=== PATIENT | male | born 1960 ===

== ENCOUNTER 2019-07-28 16:58 | Inpatient (IN) | payer OTHER ==
[~2019-07-28] VITALS: Ht 175.3 cm; Wt 73.5 kg
[2019-07-28] MEDS ORDERED: CEPH250 PO (17:00)
[2019-07-28] MEDS ORDERED: ALBUTEROL SULFATE 5 MG/ML 20 ML NEB SOLN [BULK] NEB ONE (17:15)
[2019-07-28] MEDS ORDERED: MAGNESIUM SULFATE 2 GM/WATER 50 ML IV ONE (17:15)
[2019-07-28] MEDS ORDERED: MethylPREDNISolone SOD SUCC 125 MG/2 ML VIAL IVP ONE (17:15)
[2019-07-28] MEDS ORDERED: IPRATROPIUM BROMIDE 0.5 MG/2.5 ML NEB SOLUTION NEB ONE (17:15)
[2019-07-28 17:22] LABS: BASOPHILS % (AUTO) 0.2 % (0.0-2.0); EOSINOPHILS % (AUTO) 0 % (1.0-6.0); HEMATOCRIT 44.4 % (41-53); HEMOGLOBIN 13.9 g/dL (13.5-17.5); LYMPHOCYTES # (AUTO) 0.4 K/uL (1.0-4.8); LYMPHOCYTES % (AUTO) 2.3 % (22.0-44.0); MEAN CORPUSCULAR HEMOGLOBIN 28.3 pg (26.0-34.0); MEAN CORPUSCULAR HGB CONC 31.4 G/dL (31.0-37.0); MEAN CORPUSCULAR VOLUME 90 fL (80-100); MONOCYTES # (AUTO) 0.8 K/uL (0.1-1.0); NEUTROPHILS # (AUTO) 15.1 K/uL (1.8-7.7); PLATELET COUNT (AUTO) 441 K/uL (150-450); RED BLOOD CELL COUNT(AUTO) 4.92 MIL/uL (4.50-5.90); RED CELL DISTRIBUTION WIDTH 16.3 % (11.5-14.5)
[2019-07-28 17:25] LABS: NEUTROPHILS % (AUTO) 92.5 % (40.0-70.0)
[2019-07-28] MEDS ORDERED: PRED1 PO (17:40)
[2019-07-28 17:41] LABS: ALANINE AMINOTRANSFERASE 56 U/L (12-78); ALBUMIN 2.8 g/dL (3.4-5.0); ALKALINE PHOSPHATASE 123 U/L (46-116); ANION GAP -2 mmol/L (8-16); ASPARTATE AMINOTRANSFERASE 33 U/L (15-37); BILIRUBIN,TOTAL 0.8 mg/dL (0.1-1.0); CALCIUM, TOTAL 8.7 mg/dL (8.8-10.5); CHLORIDE 100 mmol/L (98-107); CREATINE KINASE, TOTAL ONLY 53 U/L (39-308); CREATININE 1.08 mg/dL (0.60-1.30); GLOMERULAR FILTR. RATE CALC > 60 mL/min (>60); GLUCOSE,RANDOM 112 mg/dL (70-110); POTASSIUM 5.8 mmol/L (3.5-5.1); SODIUM SERUM 140 mmol/L (136-145); TOTAL PROTEIN, SERUM 7.4 g/dL (6.4-8.2); UREA NITROGEN, BLOOD 23 mg/dL (7-18)
[2019-07-28 17:43] LABS: B-TYPE NATRIURETIC PEPTIDE 3780 pg/mL (0-100)
[2019-07-28] MEDS ORDERED: SODIUM CHLORIDE 0.9% 2,050 ML IV ONE (17:45)
[2019-07-28] MEDS ORDERED: PIPERACILLIN/TAZO 3.375 GM/D5W 50 ML IV ONE (17:45)
[2019-07-28 17:50] LABS: CARBON DIOXIDE 42 mmol/L (22-29)
[2019-07-28] MEDS ORDERED: VANCOMYCIN HCL 1.25 GM in DEXTROSE 5%-WATER 250 ML IV ONE (18:00)
[2019-07-28 18:09] LABS: ABG OXYGEN CONTENT 19.3 mL/dL (15.0-23.0); SOURCE, BLOOD GAS ARTERIAL
[2019-07-28 18:12] LABS: ABG A-A DIFF O2 112.9 mmHg (10-20.0); ABG BASE EXCESS 13.2 mmol/L (-2.0-3.0); ABG CARBOXYHEMOGLOBIN 2.2 % (0.0-1.5); ABG HCO3 31.7 mmol/L (22.0-26.0); ABG METHEMOGLOBIN 0.4 % (0.0-1.5); ABG OXYGEN SATURATION 96.2 % (95.0-98.0); ABG OXYHEMOGLOBIN 93.7 % (94.0-100.0); ABG TOTAL HEMOGLOBIN 14.6 G/dL (12.0-18.0); PO2, ARTERIAL BG 97.7 mmHg (79.0-87.0); TEMPERATURE, FAHRENHEIT, BG 98.6 FAHREN (96.0-98.6)
[2019-07-28 18:13] LABS: ABG PCO2 130 mmHg (35-45); ABG PH 7.132 (7.35-7.450); O2 DEVICE,BLOOD GAS BIPAP (ROOM AIR); SITE, BLOOD GAS RT RADIAL; SPONTANEOUS VT, BG 303 ml
[2019-07-28] MEDS ORDERED: ETOMIDATE 2 MG/ML 10 ML VIAL IV ONE (18:19)
[2019-07-28] MEDS ORDERED: ROCURONIUM BROMIDE 10 MG/ML 5 ML VIAL ONE (18:22)
[2019-07-28] MEDS ORDERED: 0.9% SODIUM CHLORIDE 10 ML SYRINGE IVP PRN (18:30)
[2019-07-28] MEDS ORDERED: ONDANSETRON HCL 4 MG/2 ML VIAL IVP PRN ×2 (18:30→18:45)
[2019-07-28] MEDS ORDERED: ACETAMINOPHEN 325 MG TABLET PO PRN ×2 (18:30→18:45)
[2019-07-28] MEDS ORDERED: MORPHINE SULFATE 2 MG/ML SYRINGE IVP PRN (18:45)
[2019-07-28] MEDS ORDERED: BISACODYL 10 MG RECTAL RECTAL SUPPOSITORY PR PRN (18:45)
[2019-07-28] MEDS ORDERED: MAGNESIUM HYDROXIDE SUSPENSION 30 ML UDCUP PO PRN (18:45)
[2019-07-28] MEDS ORDERED: ETOMIDATE 2 MG/ML 10 ML VIAL IVP ONE (18:45)
[2019-07-28] MEDS ORDERED: ROCURONIUM BROMIDE 10 MG/ML 5 ML VIAL IVP ONE (18:45)
[2019-07-28] MEDS ORDERED: ZOLPIDEM TARTRATE 5 MG TABLET PO PRN (18:45)
[2019-07-28] MEDS ORDERED: HYDROCODONE/ACETAMINOPHEN 5-325 MG TABLET PO PRN (18:45)
[2019-07-28 19:03] LABS: INFLUENZA TYPE A NEGATIVE FOR TYPE A (NEGATIVE); INFLUENZA TYPE B NEGATIVE FOR TYPE B (NEGATIVE)
[2019-07-28] MEDS ORDERED: FentaNYL CITRATE PF 500 MCG in DEXTROSE 5%-WATER 90 ML IV PRN (19:25)
[2019-07-28] MEDS ORDERED: PROPOFOL 1000 MG/ISO-OSM 100 ML IV PRN (19:42)
[2019-07-28 20:09] LABS: APPEARANCE,URINE CLOUDY (CLEAR); BILIRUBIN,URINE NEGATIVE (NEGATIVE); GLUCOSE, URINE (UA) NEGATIVE (NEGATIVE); KETONES,URINE NEGATIVE (NEGATIVE); LEUKOCYTE ESTERASE ,URINE SMALL (NEGATIVE); OCCULT BLOOD,URINE LARGE (NEGATIVE); PROTEIN,URINE SEE CONFIRM (NEGATIVE)
[2019-07-28] MEDS ORDERED: MIDAZOLAM HCL 100 MG in DEXTROSE 5%-WATER 180 ML IV PRN (20:15)
[2019-07-28 20:24] LABS: BACTERIA,URINE Moderate /HPF (None Seen); NITRATE,URINE POSITIVE (NEGATIVE); SQUAMOUS EPITHELIAL CELL,UR Few /LPF (None Seen); SULFOSALICYLIC ACID,URINE 3+ (Negative); WBC,URINE 26-50 /HPF (0-5)
[2019-07-28] MEDS ORDERED: MIDAZOLAM HCL 5 MG/ML VIAL ONE (20:24)
[2019-07-28] MEDS ORDERED: MIDAZOLAM HCL 2 MG/2 ML VIAL IVP ONE (20:30)
[2019-07-28 20:42] LABS: ABG A-A DIFF O2 424.3 mmHg (10-20.0); ABG BASE EXCESS 5.5 mmol/L (-2.0-3.0); ABG CARBOXYHEMOGLOBIN 1.9 % (0.0-1.5); ABG HCO3 27.6 mmol/L (22.0-26.0); ABG METHEMOGLOBIN 0.2 % (0.0-1.5); ABG OXYGEN CONTENT 18.6 mL/dL (15.0-23.0); ABG OXYGEN SATURATION 99.5 % (95.0-98.0); ABG OXYHEMOGLOBIN 97.4 % (94.0-100.0); ABG PH 7.289 (7.35-7.450); ABG TOTAL HEMOGLOBIN 13.2 G/dL (12.0-18.0); PO2, ARTERIAL BG 222.3 mmHg (79.0-87.0); SOURCE, BLOOD GAS ARTERIAL; TEMPERATURE, FAHRENHEIT, BG 97.4 FAHREN (96.0-98.6)
[2019-07-28 20:43] LABS: ABG PCO2 68 mmHg (35-45); O2 DEVICE,BLOOD GAS VENTILATOR (ROOM AIR); PEEP,BG 5 cm H2O; SITE, BLOOD GAS RT RADIAL; VT, ABG 500 ml
[2019-07-28] MEDS: CefTRIAXone 1 GM/DEXTROSE 50 ML IV SCH (20:47)
[2019-07-28] MEDS: BENZONATATE 100 MG CAPSULE PO SCH (21:00)
[2019-07-28] MEDS: DOCUSATE SODIUM 100 MG CAPSULE PO SCH (21:00)
[2019-07-28] MEDS: AZITHROMYCIN 500 MG/NS 250 ML IV SCH (21:00)
[2019-07-28] MEDS: GuaiFENesin SR 600 MG ER TABLET PO SCH (21:00)
[2019-07-28] MEDS: IPRATROPIUM BROMIDE 0.5 MG/2.5 ML NEB SOLUTION NEB SCH (21:58)
[2019-07-28] MEDS: ALBUTEROL SULFATE 2.5 MG/0.5 ML NEB SOLUTION NEB SCH (21:58)
[2019-07-29] MEDS: HEPARIN SODIUM,PORCINE 5,000 UNITS/ML VIAL SQ SCH ×4 (01:17→23:20)
[2019-07-29] MEDS: MethylPREDNISolone SOD SUCC 125 MG/2 ML VIAL IVP SCH ×5 (01:33→23:20)
[2019-07-29] MEDS: ALBUTEROL SULFATE 2.5 MG/0.5 ML NEB SOLUTION NEB SCH ×4 (01:39→19:38)
[2019-07-29] MEDS: IPRATROPIUM BROMIDE 0.5 MG/2.5 ML NEB SOLUTION NEB SCH ×4 (01:39→19:38)
[2019-07-29 07:33] LABS: EOSINOPHILS % (AUTO) 0.3 % (1.0-6.0); HEMATOCRIT 39.7 % (41-53); HEMOGLOBIN 12.5 g/dL (13.5-17.5); LYMPHOCYTES # (AUTO) 0.2 K/uL (1.0-4.8); LYMPHOCYTES % (AUTO) 2.7 % (22.0-44.0); MEAN CORPUSCULAR HEMOGLOBIN 27.9 pg (26.0-34.0); MEAN CORPUSCULAR HGB CONC 31.5 G/dL (31.0-37.0); MEAN CORPUSCULAR VOLUME 88 fL (80-100); MONOCYTES # (AUTO) 0.2 K/uL (0.1-1.0); MONOCYTES % (AUTO) 2.8 % (2.0-9.0); NEUTROPHILS # (AUTO) 7.8 K/uL (1.8-7.7); PLATELET COUNT (AUTO) 320 K/uL (150-450); RED BLOOD CELL COUNT(AUTO) 4.49 MIL/uL (4.50-5.90); RED CELL DISTRIBUTION WIDTH 15.9 % (11.5-14.5)
[2019-07-29 07:34] LABS: NEUTROPHILS % (AUTO) 94.2 % (40.0-70.0)
[2019-07-29 07:48] LABS: ALANINE AMINOTRANSFERASE 53 U/L (12-78); ALBUMIN 2.2 g/dL (3.4-5.0); ALKALINE PHOSPHATASE 94 U/L (46-116); ANION GAP -1 mmol/L (8-16); ASPARTATE AMINOTRANSFERASE 35 U/L (15-37); BILIRUBIN,TOTAL 0.6 mg/dL (0.1-1.0); CALCIUM, TOTAL 7.7 mg/dL (8.8-10.5); CARBON DIOXIDE 40 mmol/L (22-29); CHLORIDE 101 mmol/L (98-107); CREATININE 1.03 mg/dL (0.60-1.30); GLOMERULAR FILTR. RATE CALC > 60 mL/min (>60); GLUCOSE,RANDOM 121 mg/dL (70-110); POTASSIUM 4.6 mmol/L (3.5-5.1); SODIUM SERUM 140 mmol/L (136-145); UREA NITROGEN, BLOOD 24 mg/dL (7-18)
[2019-07-29 08:15] VITALS: BP 111/63
[2019-07-29] MEDS: PANTOPRAZOLE SODIUM 40 MG DR TABLET PO SCH (08:51)
[2019-07-29] MEDS: BENZONATATE 100 MG CAPSULE PO SCH ×3 (08:51→21:09)
[2019-07-29] MEDS: DOCUSATE SODIUM 100 MG CAPSULE PO SCH ×2 (08:51→21:09)
[2019-07-29] MEDS: GuaiFENesin SR 600 MG ER TABLET PO SCH ×2 (08:51→21:09)
[2019-07-29 09:32] LABS: ABG A-A DIFF O2 278.1 mmHg (10-20.0); ABG BASE EXCESS 14.2 mmol/L (-2.0-3.0); ABG CARBOXYHEMOGLOBIN 1.4 % (0.0-1.5); ABG HCO3 35.4 mmol/L (22.0-26.0); ABG METHEMOGLOBIN 0.3 % (0.0-1.5); ABG OXYGEN CONTENT 17.4 mL/dL (15.0-23.0); ABG OXYGEN SATURATION 96.4 % (95.0-98.0); ABG OXYHEMOGLOBIN 94.8 % (94.0-100.0); ABG PCO2 64 mmHg (35-45); ABG PH 7.405 (7.35-7.450); PO2, ARTERIAL BG 79.9 mmHg (79.0-87.0); SOURCE, BLOOD GAS ARTERIAL; TEMPERATURE, FAHRENHEIT, BG 98.6 FAHREN (96.0-98.6)
[2019-07-29 09:33] LABS: O2 DEVICE,BLOOD GAS VENTILATOR (ROOM AIR); PEEP,BG 5 cm H2O; SITE, BLOOD GAS LFT RADIAL; VT, ABG 500 ml
[2019-07-29 12:00] VITALS: BP 103/55
[2019-07-29] MEDS: FentaNYL CITRATE PF 500 MCG in DEXTROSE 5%-WATER 90 ML IV PRN ×3 (12:49→23:01)
[2019-07-29] MEDS ORDERED: FUROSEMIDE 20 MG/2 ML VIAL IVP ONE (13:30)
[2019-07-29] MEDS ORDERED: MIDAZOLAM HCL 100 MG in DEXTROSE 5%-WATER 180 ML IV PRN (14:01)
[2019-07-29 14:38] LABS: AMPHET/METH SCREEN,URINE NEGATIVE (NEGATIVE); BARBITURATE SCREEN, URINE NEGATIVE (NEGATIVE); BENZODIAZEPINES SCREEN,URINE POSITIVE (NEGATIVE); CANNABINOID SCREEN,URINE POSITIVE (NEGATIVE); COCAINE SCREEN,URINE NEGATIVE (NEGATIVE); METHADONE SCREEN, URINE NEGATIVE (NEGATIVE); OPIATE SCREEN,URINE NEGATIVE (NEGATIVE); PHENCYCLIDINE SCREEN,URINE NEGATIVE (NEGATIVE)
[2019-07-29] MEDS ORDERED: VANCOMYCIN HCL 1 GM/D5% WATER 200 ML IV ONE (15:00)
[2019-07-29] MEDS ORDERED: SODIUM CHLORIDE 0.9% 250 ML IV ONE ×2 (15:23→23:40)
[2019-07-29] MEDS: MIDAZOLAM HCL 100 MG in DEXTROSE 5%-WATER 180 ML IV PRN ×2 (15:32→22:07)
[2019-07-29 16:00] VITALS: BP 89/58
[2019-07-29] MEDS: ALBUMIN HUMAN 25%-25GM/100ML 100 ML IV SCH (16:31)
[2019-07-29 20:00] VITALS: BP 96/57
[2019-07-29] MEDS ORDERED: FUROSEMIDE 20 MG/2 ML VIAL IVP SCH (21:00)
[2019-07-29] MEDS: CefTRIAXone 1 GM/DEXTROSE 50 ML IV SCH (21:30)
[2019-07-29] MEDS: AZITHROMYCIN 500 MG/NS 250 ML IV SCH (22:15)
[2019-07-30] VITALS: BP 96/58
[2019-07-30] MEDS: ALBUMIN HUMAN 25%-25GM/100ML 100 ML IV SCH ×3 (00:54→16:04)
[2019-07-30] MEDS: IPRATROPIUM BROMIDE 0.5 MG/2.5 ML NEB SOLUTION NEB SCH ×4 (01:40→20:04)
[2019-07-30] MEDS: ALBUTEROL SULFATE 2.5 MG/0.5 ML NEB SOLUTION NEB SCH ×4 (01:40→20:04)
[2019-07-30 04:00] VITALS: BP 115/74
[2019-07-30 05:49] LABS: CALCIUM, TOTAL 8.5 mg/dL (8.8-10.5); CHLORIDE 99 mmol/L (98-107); CREATININE 0.88 mg/dL (0.60-1.30); GLOMERULAR FILTR. RATE CALC > 60 mL/min (>60); GLUCOSE,RANDOM 122 mg/dL (70-110); POTASSIUM 4.7 mmol/L (3.5-5.1); SODIUM SERUM 140 mmol/L (136-145); UREA NITROGEN, BLOOD 28 mg/dL (7-18)
[2019-07-30 05:51] LABS: ANION GAP -2 mmol/L (8-16)
[2019-07-30 05:53] LABS: CARBON DIOXIDE 43 mmol/L (22-29)
[2019-07-30] MEDS: MethylPREDNISolone SOD SUCC 125 MG/2 ML VIAL IVP SCH ×3 (05:53→17:59)
[2019-07-30] MEDS: VANCOMYCIN HCL 1 GM/D5% WATER 200 ML IV SCH ×2 (06:30→17:59)
[2019-07-30 08:00] VITALS: BP 128/70
[2019-07-30] MEDS: DOCUSATE SODIUM 100 MG CAPSULE PO SCH ×2 (08:30→20:52)
[2019-07-30] MEDS: GuaiFENesin SR 600 MG ER TABLET PO SCH ×2 (08:31→20:53)
[2019-07-30] MEDS: PANTOPRAZOLE SODIUM 40 MG DR TABLET PO SCH (08:31)
[2019-07-30] MEDS: BENZONATATE 100 MG CAPSULE PO SCH ×3 (08:31→20:52)
[2019-07-30] MEDS: HEPARIN SODIUM,PORCINE 5,000 UNITS/ML VIAL SQ SCH ×2 (08:37→16:04)
[2019-07-30] MEDS: RINGERS SOLUTION,LACTATED 1,000 ML IV SCH (09:48)
[2019-07-30] MEDS: FentaNYL CITRATE PF 500 MCG in DEXTROSE 5%-WATER 90 ML IV PRN ×2 (10:05→20:18)
[2019-07-30] MEDS: ALBUTEROL SULFATE 2.5 MG/0.5 ML NEB SOLUTION NEB PRN (11:04)
[2019-07-30] MEDS: IPRATROPIUM BROMIDE 0.5 MG/2.5 ML NEB SOLUTION NEB PRN (11:05)
[2019-07-30 12:00] VITALS: BP 109/65
[2019-07-30 16:00] VITALS: BP 117/66
[2019-07-30 20:00] VITALS: BP 126/73
[2019-07-30] MEDS: CefTRIAXone 1 GM/DEXTROSE 50 ML IV SCH (20:17)
[2019-07-30] MEDS: AZITHROMYCIN 500 MG/NS 250 ML IV SCH (20:53)
[2019-07-31] VITALS: BP_SYST 111; BP_SYST 123; BP_DIAS 68
[2019-07-31] MEDS: RINGERS SOLUTION,LACTATED 1,000 ML IV SCH (00:24)
[2019-07-31] MEDS: MethylPREDNISolone SOD SUCC 125 MG/2 ML VIAL IVP SCH ×4 (00:24→17:45)
[2019-07-31] MEDS: HEPARIN SODIUM,PORCINE 5,000 UNITS/ML VIAL SQ SCH ×3 (00:24→16:04)
[2019-07-31] MEDS: ALBUMIN HUMAN 25%-25GM/100ML 100 ML IV SCH ×3 (00:25→16:04)
[2019-07-31] MEDS: ALBUTEROL SULFATE 2.5 MG/0.5 ML NEB SOLUTION NEB SCH ×4 (02:09→19:59)
[2019-07-31] MEDS: IPRATROPIUM BROMIDE 0.5 MG/2.5 ML NEB SOLUTION NEB SCH ×4 (02:09→19:59)
[2019-07-31 04:00] VITALS: BP 127/88
[2019-07-31] MEDS: FentaNYL CITRATE PF 500 MCG in DEXTROSE 5%-WATER 90 ML IV PRN ×2 (04:57→17:46)
[2019-07-31 05:21] LABS: BASOPHILS % (AUTO) 0.4 % (0.0-2.0); EOSINOPHILS % (AUTO) 0 % (1.0-6.0); HEMATOCRIT 32.2 % (41-53); HEMOGLOBIN 10.6 g/dL (13.5-17.5); LYMPHOCYTES # (AUTO) 0.1 K/uL (1.0-4.8); LYMPHOCYTES % (AUTO) 1.2 % (22.0-44.0); MEAN CORPUSCULAR HEMOGLOBIN 28.4 pg (26.0-34.0); MEAN CORPUSCULAR VOLUME 86 fL (80-100); MONOCYTES # (AUTO) 0.3 K/uL (0.1-1.0); MONOCYTES % (AUTO) 3.3 % (2.0-9.0); NEUTROPHILS # (AUTO) 9.2 K/uL (1.8-7.7); PLATELET COUNT (AUTO) 298 K/uL (150-450); RED BLOOD CELL COUNT(AUTO) 3.74 MIL/uL (4.50-5.90); RED CELL DISTRIBUTION WIDTH 15.9 % (11.5-14.5)
[2019-07-31 05:23] LABS: NEUTROPHILS % (AUTO) 95.1 % (40.0-70.0)
[2019-07-31 05:35] LABS: ALANINE AMINOTRANSFERASE 35 U/L (12-78); ALBUMIN 3.7 g/dL (3.4-5.0); ALKALINE PHOSPHATASE 61 U/L (46-116); ANION GAP -2 mmol/L (8-16); ASPARTATE AMINOTRANSFERASE 14 U/L (15-37); BILIRUBIN,TOTAL 0.5 mg/dL (0.1-1.0); CALCIUM, TOTAL 8.7 mg/dL (8.8-10.5); CHLORIDE 100 mmol/L (98-107); CREATININE 0.81 mg/dL (0.60-1.30); GLOMERULAR FILTR. RATE CALC > 60 mL/min (>60); GLUCOSE,RANDOM 124 mg/dL (70-110); POTASSIUM 4.7 mmol/L (3.5-5.1); SODIUM SERUM 140 mmol/L (136-145); TOTAL PROTEIN, SERUM 6.7 g/dL (6.4-8.2); UREA NITROGEN, BLOOD 29 mg/dL (7-18)
[2019-07-31 05:37] LABS: CARBON DIOXIDE 42 mmol/L (22-29)
[2019-07-31] MEDS: VANCOMYCIN HCL 1 GM/D5% WATER 200 ML IV SCH ×2 (06:40→17:46)
[2019-07-31 08:00] VITALS: BP_SYST 135; BP_DIAS 87; BP_DIAS 89
[2019-07-31] MEDS: PANTOPRAZOLE SODIUM 40 MG/VIAL IVP SCH (08:42)
[2019-07-31] MEDS: BENZONATATE 100 MG CAPSULE PO SCH ×3 (08:43→20:21)
[2019-07-31] MEDS: DOCUSATE SODIUM 100 MG CAPSULE PO SCH ×2 (08:43→20:21)
[2019-07-31] MEDS: GuaiFENesin SR 600 MG ER TABLET PO SCH ×2 (08:43→20:21)
[2019-07-31 12:00] VITALS: BP_SYST 124; BP_DIAS 71; BP_DIAS 81
[2019-07-31 16:00] VITALS: BP 128/76
[2019-07-31 20:00] VITALS: BP 134/87
[2019-08-01] VITALS (8 sets, daily range): BP systolic 130–144; BP diastolic 60–88
[2019-08-01] MEDS: MethylPREDNISolone SOD SUCC 125 MG/2 ML VIAL IVP SCH ×5 (00:41→23:11)
[2019-08-01] MEDS: ALBUMIN HUMAN 25%-25GM/100ML 100 ML IV SCH ×3 (00:42→16:58)
[2019-08-01] MEDS: HEPARIN SODIUM,PORCINE 5,000 UNITS/ML VIAL SQ SCH ×4 (00:42→23:10)
[2019-08-01] MEDS ORDERED: SODIUM CHLORIDE 0.9% 250 ML IV ONE (01:21)
[2019-08-01] MEDS: IPRATROPIUM BROMIDE 0.5 MG/2.5 ML NEB SOLUTION NEB SCH ×4 (01:46→20:01)
[2019-08-01] MEDS: ALBUTEROL SULFATE 2.5 MG/0.5 ML NEB SOLUTION NEB SCH ×4 (01:46→20:01)
[2019-08-01] MEDS: FentaNYL CITRATE PF 500 MCG in DEXTROSE 5%-WATER 90 ML IV PRN ×2 (04:29→15:39)
[2019-08-01 05:13] LABS: BASOPHILS % (AUTO) 0.1 % (0.0-2.0); EOSINOPHILS % (AUTO) 0 % (1.0-6.0); HEMATOCRIT 33.8 % (41-53); LYMPHOCYTES # (AUTO) 0.1 K/uL (1.0-4.8); MEAN CORPUSCULAR HEMOGLOBIN 28.4 pg (26.0-34.0); MEAN CORPUSCULAR HGB CONC 32.4 G/dL (31.0-37.0); MEAN CORPUSCULAR VOLUME 88 fL (80-100); MONOCYTES # (AUTO) 0.4 K/uL (0.1-1.0); MONOCYTES % (AUTO) 5.2 % (2.0-9.0); NEUTROPHILS # (AUTO) 7.2 K/uL (1.8-7.7); PLATELET COUNT (AUTO) 271 K/uL (150-450); RED BLOOD CELL COUNT(AUTO) 3.86 MIL/uL (4.50-5.90); RED CELL DISTRIBUTION WIDTH 16.2 % (11.5-14.5)
[2019-08-01 05:16] LABS: NEUTROPHILS % (AUTO) 93.7 % (40.0-70.0)
[2019-08-01 05:25] LABS: ALANINE AMINOTRANSFERASE 50 U/L (12-78); ALBUMIN 4.4 g/dL (3.4-5.0); ALKALINE PHOSPHATASE 54 U/L (46-116); ASPARTATE AMINOTRANSFERASE 34 U/L (15-37); BILIRUBIN,TOTAL 0.8 mg/dL (0.1-1.0); CALCIUM, TOTAL 9.2 mg/dL (8.8-10.5); CHLORIDE 103 mmol/L (98-107); CREATININE 0.72 mg/dL (0.60-1.30); GLOMERULAR FILTR. RATE CALC > 60 mL/min (>60); GLUCOSE,RANDOM 138 mg/dL (70-110); POTASSIUM 5.6 mmol/L (3.5-5.1); SODIUM SERUM 145 mmol/L (136-145); TOTAL PROTEIN, SERUM 7.1 g/dL (6.4-8.2); UREA NITROGEN, BLOOD 32 mg/dL (7-18)
[2019-08-01 05:26] LABS: ANION GAP -2 mmol/L (8-16); CARBON DIOXIDE 44 mmol/L (22-29)
[2019-08-01 05:38] LABS: VANCOMYCIN,RANDOM 11.4 mcg/mL (25.0-50.0)
[2019-08-01] MEDS ORDERED: SODIUM CHLORIDE 0.9% 100 ML ONE (05:50)
[2019-08-01] MEDS: VANCOMYCIN HCL 1 GM/D5% WATER 200 ML IV SCH ×3 (06:08→23:10)
[2019-08-01] MEDS: PANTOPRAZOLE SODIUM 40 MG/VIAL IVP SCH (08:20)
[2019-08-01] MEDS: DOCUSATE SODIUM 100 MG CAPSULE PO SCH ×2 (08:21→20:43)
[2019-08-01] MEDS: GuaiFENesin SR 600 MG ER TABLET PO SCH ×2 (08:21→20:43)
[2019-08-01] MEDS: BENZONATATE 100 MG CAPSULE PO SCH ×3 (08:21→20:43)
[2019-08-01] MEDS: MIDAZOLAM HCL 100 MG in DEXTROSE 5%-WATER 180 ML IV PRN (08:22)
[2019-08-01] MEDS: ALBUTEROL SULFATE 2.5 MG/0.5 ML NEB SOLUTION NEB PRN (09:41)
[2019-08-01] MEDS: IPRATROPIUM BROMIDE 0.5 MG/2.5 ML NEB SOLUTION NEB PRN (09:41)
[2019-08-01 16:38] LABS: LEGIONELLA PNEUMO AG URINE Negative (Negative)
[2019-08-02 13:08] LABS: ORGANISM ID Not indicated.; S PNEUMO SOURCE Urine; STREP PNEUMONIAE AG URINE Negative (Negative); STREP.PNEUMO BODY FLUID CULT. Not Indicated
== END 2019-08-02 | disposition short-term general hospital (02) | DRG 720 ==
LOC: EDBD 16:59 → EMS 16:59 → ICU 07-29 05:00
PROVIDERS: ADMIT Internal Medicine; ATTEND Internal Medicine
PROC: 5A1955Z Respiratory Ventilation, Greater than 96 Consecutive Hours (ICD-10-PCS; principal; 2019-07-29)
PROC: 0BH17EZ Insertion of Endotracheal Airway into Trachea, Via Natural or Artificial Opening (ICD-10-PCS; 2019-07-29)
PROC: 5A09357 Assistance with Respiratory Ventilation, Less than 24 Consecutive Hours, Continuous Positive Airway Pressure (ICD-10-PCS; 2019-07-29)
DX: A41.02 Sepsis due to Methicillin resistant Staphylococcus aureus (principal); J96.01 Acute respiratory failure with hypoxia; J96.02 Acute respiratory failure with hypercapnia; J91.8 Pleural effusion in other conditions classified elsewhere; J15.212 Pneumonia due to Methicillin resistant Staphylococcus aureus; E46 Unspecified protein-calorie malnutrition; D64.9 Anemia, unspecified; N39.0 Urinary tract infection, site not specified; F17.210 Nicotine dependence, cigarettes, uncomplicated; J43.8 Other emphysema; Z79.899 Other long term (current) drug therapy
CPT/HCPCS: 31500; 36600; 71250; 80307; 82805; 83605; 84145; 87040; 87070; 87081; 87086; 87205; 87449; 87804; 87899; 93005; 93306; 94002; 94003; 94640; 94660; 99291; 99292; C9113; G0378; J0456; J0696; J1644; J1940; J2250; J2543; J2704; J2930; J3010; J3370; J3475; J3490; J7050; J7060; J7120; P9046